=== PATIENT | male | born 1955 | race Caucasian/White ===

== ENCOUNTER 2016-06-23 14:12 | Emergency (ER) | payer OTHER ==
[~2016-06-23] VITALS: Ht 167.6 cm; Wt 102.1 kg
[~2016-06-23 14:12] MED LIST: FLEXERIL10 MG PO; NAPROXEN500 MG PO
[2016-06-23] MEDS ORDERED: OXYCODONE HCL15 M1 PO (15:14)
[2016-06-23] MEDS ORDERED: VALSARTAN160 M1 PO (15:15)
[2016-06-23] MEDS ORDERED: CLOPIDOGREL75 M1 PO (15:15)
[2016-06-23] MEDS ORDERED: FENOFIBRATE145 M1 PO (15:16)
[2016-06-23] MEDS ORDERED: LISINOPRIL20 M1 PO (15:16)
[2016-06-23] MEDS ORDERED: ZETIA10 M1 PO (15:16)
[2016-06-23] MEDS ORDERED: ATORVASTATIN CA20 M1 PO (15:16)
[2016-06-23] MEDS ORDERED: KRILL OIL 1,001 EACH PO (15:18)
[2016-06-23] MEDS ORDERED: ASPIRIN81 M4 PO (15:18)
--- NOTE | 2016-06-23 15:24 | ED CARDIAC/CP/PALPITATIONS ---
History of Present Illness General Chief Complaint: General Adult Stated Complaint: "PRESSURE IN MY CHEST AND BODY" Source: patient Exam Limitations: no limitations Vital Signs & Intake/Output Vital Signs & Intake/Output Vital Signs Date Time Temp Pulse Resp B/P Pulse O2 O2 Flow FiO2 Ox Delivery Rate 06/23 1839 69 18 150/84 97 Room Air 06/23 1624 97.0 65 18 137/75 95 Room Air 06/23 1453 Room Air Room Air 06/23 1429 97.9 81 20 177/89 97 Room Air Allergies Coded Allergies: NO KNOWN ALLERGIES (04/06/12) Reconcile Medications Alprazolam (Xanax) 0.25 MG TABLET 1-2 TAB PO TID PRN ANXIETY Aspirin (Aspirin*) 81 MG TAB.CHEW 1 TAB PO DAILY HEART (Reported) Clopidogrel Bisulfate (Clopidogrel) 75 MG TABLET 1 TAB PO 1800 BLOOD THINNER (Reported) Ezetimibe (Zetia) 10 MG TABLET 1 TAB PO 1800 CHOLESTEROL (Reported) Krill/Om3/Dha/Epa/Om6/Lip/Astx (Krill Oil 1,000 MG Softgel) 1,000-130MG CAPSULE 2 CAP PO DAILY SUPPLEMENT (Reported) Oxycodone HCl 15 MG TABLET 1 TAB PO 5 TIMES A DAY PAIN (Reported) Valsartan 160 MG TABLET 1 TAB PO 1800 HEART (Reported) Triage Note: PT C/O CHEST PRESSURE AND LEFT ARM PRESSURE. STATES HE FEELS THAT HIS BODY IS VERY TENSE AND FEELS ANXIOUS. STATES SYMPTOMS STARTED YESTERDAY MORNING THEN WENT AWAY, STARTED AGAIN THIS MORNING Triage Nurses Notes Reviewed? yes HPI: 61-year-old male with history of hypertension, high cholesterol, long time smoker, up to 2 packs per day, excessive coffee drinking history, mild history of coronary disease, presents with chest pain that started this morning at 8 AM. He woke from sleep asymptomatic and started having chest tightness in the anterior chest that was radiating to left shoulder left arm since around 8 AM this morning. He states it is been constant but varying in intensity, currently mild to moderate. It was never severe. He does not have any other symptoms of shortness of breath cough diaphoresis nausea vomiting or dyspnea on exertion. He has no leg swelling or edema. He had a similar episode of this yesterday that lasted about 2 hours and was not as severe and resolved on its own. Patient tried smoking marijuana this afternoon to alleviate his symptoms as he thought he was anxious and this did not help. He has a remote history of mild coronary disease which she states that 10 years ago, his department head who is now , didn't angiogram on him and noted that he had a clogged artery that he "Roto-Rootered" however, he did not have any stents placed. He has not had follow-up with cardiology easily since his department head a few years ago. He denies any family history. Patient also admits to cocaine use occasionally, last used approximately 4 days ago. 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 (BRIDGER EATON) Past History Travel History Traveled to [place] past 21 day No Medical History Any Pertinent Medical History? 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 No (BRIDGER EATON) Review of Systems Review of Systems Constitutional: Reports: see HPI. EENTM: Reports: no symptoms. Respiratory: Reports: no symptoms. Cardiovascular: Reports: see HPI. GI: Reports: no symptoms. Genitourinary: Reports: no symptoms. Musculoskeletal: Reports: no symptoms. Skin: Reports: no symptoms. Neurological/Psychological: Reports: no symptoms. Hematologic/Endocrine: Reports: no symptoms. Immunologic/Allergic: Reports: no symptoms. All Other Systems: Reviewed and Negative (BRIDGER EATON) Physical Exam Physical Exam Respiratory: normal breath sounds, chest non-tender, no respiratory distress Cardiovascular: regular rate/rhythm Comments: Well-developed well-nourished no apparent distress. HEENT: Atraumatic, extraocular motion intact Neck: Supple, no lymphadenopathy Back: Nontender Respiratory: No respiratory distress Extremities: No edema, full range of motion Neuro: Alert and oriented x3 Psych: Mood affect normal, normal memory normal judgment. Skin: Warm and dry, no rash on exposed skin Core Measures ACS in differential dx? Yes ASA ordered for poss ACS? Yes-ordered Severe Sepsis Present: No Septic Shock Present: No (MARYAM STYLES,BRIDGER) Progress Differential Diagnosis: AMI, aortic dissection, atrial fibrillation, cholecystitis, CHF/pulm edema, costochondritis, hyperkalemia, hypovolemia, hyperthyroid, hyperventilation, intracranial hemorrhage, musculoskeletal pain, myocarditis, pancreatitis, pericarditis, pneumonia, pneumothorax, PSVT, pulmonary embolism, PUD/GERD, PVCs/PACs, respiratory failure, rib fracture, sepsis, unstable angina, V-fib/V-Tach, WPW syndrome Plan of Care: Orders Procedure Date/time Status Regular Diet 06/23 D Active TROPONIN LEVEL 06/23 1806 Complete EKG 06/23 1806 Active TROPONIN LEVEL 06/23 1505 Complete COMPREHENSIVE METABOLIC PANEL 06/23 1505 Complete CBC WITHOUT DIFFERENTIAL 06/23 1505 Complete EKG 06/23 1413 Active Laboratory Tests 06/23/16 1836: Troponin I < 0.01 06/23/16 1530: Anion Gap 10, Estimated GFR > 60, BUN/Creatinine Ratio 14.4, Glucose 113 H, Calcium 10.2, Total Bilirubin 0.6, AST 28, ALT 53, Alkaline Phosphatase 62, Troponin I < 0.01, Total Protein 7.1, Albumin 4.5, Globulin 2.6, Albumin/ Globulin Ratio 1.7, CBC w Diff NO MAN DIFF REQ, RBC 5.25, MCV 84.4, MCH 28.8, RDW 14.0, MPV 8.5, Gran % 77.9 H, Lymphocytes % 15.8 L, Monocytes % 5.8, Eosinophils % 0.2, Basophils % 0.3, Absolute Granulocytes 7.5 H, Absolute Lymphocytes 1.5, Absolute Monocytes 0.6, Absolute Eosinophils 0, Absolute Basophils 0, PUBS MCHC 34.1 Diagnostic Imaging: Viewed by Me: Radiology Read. Discussed w/RAD: Radiology Read. CXR Impression: PATIENT: ADRIAN FOUNTAIN PRESENT AGE : 61 PATIENT ACCOUNT NO: [id number] : 59 LOCATION: [facility] ORDERING PHYSICIAN: BRIDGER STYLES SERVICE DATE: 06/23/16 EXAM TYPE: RAD - XRY-PORTABLE CHEST XRAY EXAMINATION: XR PORTABLE CHEST CLINICAL INFORMATION: Chest pain COMPARISON: None TECHNIQUE: Portable AP view of the chest was obtained. FINDINGS: No significant abnormality is noted involving the heart, lungs, mediastinum, bony thorax or soft tissues. IMPRESSION: Unremarkable examination. DICTATED BY: ISABELA MAC MD DATE/TIME DICTATED:06/23/161524 HOTEL BREAKFAST ATTENDANT:VANESSA DATE/TIME TRANSCRIBED:06/23/ Initial ED EKG: NSR, rate (78), RBBB, no ST T wave changes Repeat EKG: unchanged (1822) Rhythm Strip: normal sinus rhythm Comments: Patient was given 325 mg of aspirin and 0.5 mg of Xanax for his stress and anxiety as he believes this is causing his symptoms. Shortly after he was reevaluated and his feeling sniffing immediately better, his blood pressure has improved as well. First set of EKGs and troponin are negative. I discussed case with Dr. Hough who recommends repeat EKG and troponin at the 4 hour hussein and short-term interval follow-up with him in the office if negative and patient remains asymptomatic throughout his stay here. Discussed this with patient and who understand and agree with plan Patient reevaluated multiple times, he continues to be asymptomatic. His repeat EKG and troponin are negative. He'll follow up with department head. He was instructed to refrain from illicit drugs, stop smoking and decrease stress in his life. He is to return with worsening significant symptoms. I'll provide him with a few tablets of Xanax for possible anxiety however I told him that I'm not comfortable with the diagnosis of anxiety causing HIS symptoms and he needs further workup with department head due to his extensive medical history and risk factors. (MARYAM STYLES,BRIDGER) Departure Departure Disposition: HOME OR SELF CARE Condition: Stable Clinical Impression Primary Impression: Chest pain Qualifiers: Chest pain type: unspecified Qualified Code: R07.9 - Chest pain, unspecified Referrals: RICHIE EVANS,SHAWNEE (PCP/Family) TOBY EVANS PhD,GUILLERMO Preston Additional Instructions: Please follow up with department head as outpatient. Call to make an appointment in the next few days. Return to the ER with worsening chest pain or shortness of breath, feeling dizzy lightheaded or feeling as if you're going to pass out Departure Forms: Customer Survey General Discharge Information Prescriptions: Current Visit Scripts Alprazolam (Xanax) 1-2 TAB PO TID PRN ANXIETY #12 TAB (BRIDGER EATON) PA/INTERNATIONAL FIRST OFFICER Co-Sign Statement Statement: ED Attending supervision documentation- [x] I saw and evaluated the patient. I have also reviewed all the pertinent lab results and diagnostic results. I agree with the findings and the plan of care as documented in the PA's/INTERNATIONAL FIRST OFFICER's documentation. [x] I have reviewed the ED Record and agree with the PA's/INTERNATIONAL FIRST OFFICER's documentation. [] Additions or exceptions (if any) to the PAs/INTERNATIONAL FIRST OFFICER's note and plan are summarized below: [] (PRABHAKAR RIVAS DO) Critical Care Note Critical Care Note Critical Care Time: non-applicable (BRIDGER EATON)
--- NOTE | 2016-06-23 15:29 | RADIOLOGY REPORT ---
EXAMINATION: XR PORTABLE CHEST CLINICAL INFORMATION: Chest pain COMPARISON: None TECHNIQUE: Portable AP view of the chest was obtained. FINDINGS: No significant abnormality is noted involving the heart, lungs, mediastinum, bony thorax or soft tissues. IMPRESSION: Unremarkable examination.
[2016-06-23 15:36] LABS: ABSOLUTE BASOPHIL COUNT 0 /CUMM (0.0-0.2); ABSOLUTE EOSINOPHIL COUNT 0 /CUMM (0.0-0.7); ABSOLUTE GRANULOCYTE CT 7.5 /CUMM (1.4-6.5); ABSOLUTE LYMPH COUNT 1.5 /CUMM (1.2-3.4); ABSOLUTE MONOCYTE COUNT 0.6 /CUMM (0.10-0.60); BASOPHIL % 0.3 % (0.0-2.0); EOSINOPHIL % 0.2 % (0-5); GRANULOCYTE % 77.9 % (42.2-75.2); HEMATOCRIT 44.3 % (42-52); MEAN CORPUSCULAR HGB 28.8 PG (27.0-31.0); MEAN CORPUSCULAR HGB CONC 34.1 G/DL (33.0-37.0); MEAN CORPUSCULAR VOLUME 84.4 FL (80.0-94.0); MEAN PLATELET VOLUME 8.5 FL (7.4-10.4); PLATELET COUNT 218 /CUMM (130-400); RED BLOOD CELL CT 5.25 /CUMM (4.70-6.10); WHITE BLOOD CELL COUNT 9.6 /CUMM (4.8-10.8)
[2016-06-23 18:39] VITALS: BP 150/84
[2016-06-23] MEDS ORDERED: XANAX0.25 M1 PO (19:44)
== END 2016-06-23 20:01 ==
LOC: ERH 14:12
PROVIDERS: Physician Assistant Surgical
DX: R07.89 Other chest pain (principal)
CPT/HCPCS: 93005; 93010

== ENCOUNTER 2016-06-29 16:32 | Emergency (ER) | payer OTHER ==
[~2016-06-29 16:32] MED LIST changes: +ASPIRIN81 M4 PO; +ATORVASTATIN CA20 M1 PO; +CLOPIDOGREL75 M1 PO; +FENOFIBRATE145 M1 PO; +KRILL OIL 1,001 EACH PO; +LISINOPRIL20 M1 PO; +OXYCODONE HCL15 M1 PO; +VALSARTAN160 M1 PO; +XANAX0.25 M1 PO; +ZETIA10 M1 PO
[2016-06-29 18:50] VITALS: BP 150/74
[2016-06-29] MEDS ORDERED: XANAX0.5 M1 PO (18:55)
--- NOTE | 2016-06-29 18:56 | ED GENERAL ADULT ---
History of Present Illness General Chief Complaint: General Adult Stated Complaint: "HAVING A ANXIETY ATTACK" PER PT Source: patient, old records Exam Limitations: no limitations Vital Signs & Intake/Output Vital Signs & Intake/Output Vital Signs Date Time Temp Pulse Resp B/P Pulse O2 O2 Flow FiO2 Ox Delivery Rate 06/29 1850 98.6 92 18 150/74 Room Air 06/29 1834 Room Air 06/29 1724 98 24 158/94 99 Allergies Coded Allergies: NO KNOWN ALLERGIES (04/06/12) Reconcile Medications Alprazolam (Xanax) 0.5 MG TABLET 1 TAB PO BIDP PRN anxiety Alprazolam (Xanax) 0.25 MG TABLET 1-2 TAB PO TID PRN ANXIETY Aspirin (Aspirin*) 81 MG TAB.CHEW 1 TAB PO DAILY HEART (Reported) Clopidogrel Bisulfate (Clopidogrel) 75 MG TABLET 1 TAB PO 1800 BLOOD THINNER (Reported) Ezetimibe (Zetia) 10 MG TABLET 1 TAB PO 1800 CHOLESTEROL (Reported) Krill/Om3/Dha/Epa/Om6/Lip/Astx (Krill Oil 1,000 MG Softgel) 1,000-130MG CAPSULE 2 CAP PO DAILY SUPPLEMENT (Reported) Oxycodone HCl 15 MG TABLET 1 TAB PO 5 TIMES A DAY PAIN (Reported) Valsartan 160 MG TABLET 1 TAB PO 1800 HEART (Reported) Triage Note: PER PT GIVEN XANAX IN ED WAS DOING WELL, SAW PMD GIVEN ANTIDEPRESSANT AND BUSPAR BUT NOT WORKING WANT THE XANAX AGAIN Triage Nurses Notes Reviewed? yes Onset: Abrupt Duration: day(s):, constant, continues in ED Timing: recent history Injury Environment: home No Modifying Factors: none HPI: 61-year-old male comes into emergency room requesting a refill on Xanax. Patient was seen here this past Sunday and had a full cardiac workup including 2 EKGs and 2 troponins. Patient was exhibiting some cardiac symptoms at that time. He really denies any chest pain with the symptoms. He denies any chest pain or shortness of breath today. Patient reports that he's been feeling very anxious, shaky, having difficulty sleeping, fatigue. He was given a prescription for Xanax the other day which significantly helped with his symptoms. He ran out of that medication. He followed up with his primary care doctor today who told him that he will not give him a refill on his Xanax and told him to come to the emergency room. Patient currently wants to get in with a psychiatrist. Denies any other associated symptoms. Denies any pain currently. Patient does not want another medical workup. (ELSIE PORTILLO) Past History Travel History Traveled to [place] past 21 day No Medical History Any Pertinent Medical History? see below for history Neurological: NONE EENT: NONE Cardiovascular: hypertension, hyperlipidemia Respiratory: NONE Gastrointestinal: NONE Hepatic: NONE Renal: NONE Musculoskeletal: osteoarthritis, CHRONIC BACK PAIN SHOULDER PAIN ?TORN ROTATOR CUFF ?COMPRESSED DISK Psychiatric: NONE Endocrine: NONE Blood Disorders: NONE Cancer(s): NONE MEDICAL RECORDS TECH/Reproductive: NONE Surgical History Surgical History: non-contributory Psychosocial History Who do you live with Spouse What is your primary language Guyanese Tobacco Use: Current Daily Use Daily Tobacco Use Amount/Type: => 5 Cigarettes daily Family History Hx Contributory? No (ELSIE PORTILLO) Review of Systems Review of Systems Constitutional: Reports: no symptoms. EENTM: Reports: no symptoms. Respiratory: Reports: no symptoms. Cardiovascular: Reports: no symptoms. GI: Reports: no symptoms. Genitourinary: Reports: no symptoms. Musculoskeletal: Reports: no symptoms. Skin: Reports: no symptoms. Neurological/Psychological: Reports: see HPI. Hematologic/Endocrine: Reports: no symptoms. Immunologic/Allergic: Reports: no symptoms. All Other Systems: Reviewed and Negative (ELSIE PORTILLO) Physical Exam Physical Exam General Appearance: well developed/nourished, no apparent distress, alert Head: atraumatic, normal appearance Eyes: Bilateral: normal appearance, EOMI. Ears, Nose, Throat: normal ENT inspection, hearing grossly normal Neck: normal inspection Respiratory: normal breath sounds, no respiratory distress Cardiovascular: regular rate/rhythm Back: normal inspection Extremities: normal inspection, normal range of motion Neurologic/Psych: awake, alert, oriented x 3 Skin: intact, normal color Core Measures ACS in differential dx? No CVA/TIA Diagnosis: No Severe Sepsis Present: No Septic Shock Present: No (ELSIE PORTILLO) Progress Differential Diagnoses I considered the following diagnoses in my evaluation of the patient: Anxiety, depression, bipolar, TN, Plan of Care: see below Initial ED EKG: none Comments: 06/29/2016 8:31:04 PM Patient clinically looks well. Nontoxic-appearing. In no apparent distress. Patient is just here for refill on medication. He denies any other symptoms other than feeling anxious. No SI HI. Patient will follow-up with his primary care doctor and try to get in with psychiatry. (ELSIE PORTILLO) Departure Departure Disposition: HOME OR SELF CARE Condition: Stable Clinical Impression Primary Impression: Anxiety Referrals: SHAWNEE QUIROZ MD (PCP/Family) Additional Instructions: Please follow-up with your primary care doctor. Please follow-up with the maid supervisor as previously instructed. Return to the emergency room immediately if any chest pain shortness of breath. Return if any other concerns worsening symptoms. Please go over all results of today's visit with your primary care doctor. Contact your primary care doctor to let them know you were here in the emergency room. There may be nonspecific findings which may not be related to your visit today here in the emergency room but may require further evaluation and chronic monitoring by your primary care doctor. If you had a laceration today the chance of foreign body always remains. You should follow-up with your primary care doctor for recheck in 3-5 days for a wound check. If you had an x-ray done there is a chance that a fracture could have been missed on initial read and you should follow-up with your primary care doctor for repeat x-rays if symptoms persist. If your blood pressure was elevated here in the emergency room please have rechecked by her primary care doctor within the next 48 hours by your primary care doctor. If you were prescribed a narcotic here in the emergency room or any type of controlled substances you're not allowed to drive while taking this medication or operate any type of heavy machinery. Narcotics can make you feel lightheaded dizziness nausea and can cause constipation. You may need to product picker a stool softener. Thank you for choosing [facility] emergency room. Please return to the emergency room immediately if you have any other concerns worsening of symptoms. Departure Forms: Customer Survey General Discharge Information Prescriptions: Current Visit Scripts Alprazolam (Xanax) 1 TAB PO BIDP PRN anxiety #15 TAB (ELSIE PORTILLO) PA/HAIRSPRING II INSPECTOR Co-Sign Statement Statement: ED Attending supervision documentation- [] I saw and evaluated the patient. I have also reviewed all the pertinent lab results and diagnostic results. I agree with the findings and the plan of care as documented in the PA's/HAIRSPRING II INSPECTOR's documentation. x I have reviewed the ED Record and agree with the PA's/HAIRSPRING II INSPECTOR's documentation. [] Additions or exceptions (if any) to the PAs/HAIRSPRING II INSPECTOR's note and plan are summarized below: [] (REYNALDO EVANS,AMY) Critical Care Note Critical Care Note Critical Care Time: non-applicable (ELSIE PORTILLO)
== END 2016-06-29 19:09 ==
LOC: ERH 16:32
DX: F41.9 Anxiety disorder, unspecified (principal)